=== PATIENT | female | born 1990 | race Two or more races ===

== ENCOUNTER 2016-05-05 11:42 | Emergency (ER) | payer SELFPAY ==
[~2016-05-05] VITALS: Wt 60.8 kg
[~2016-05-05 11:42] MED LIST: PREN1TAB49
== END 2016-05-05 14:00 | disposition left against medical advice (07) ==
LOC: FTE 11:42
DX: Z53.21 Procedure and treatment not carried out due to patient leaving prior to being seen by health care provider (principal)